=== PATIENT | male | born 1935 | race Caucasian/White ===

== ENCOUNTER 2017-10-14 10:27 | Outpatient (CLI) | payer MEDICARE, OTHER | END 2017-10-14 10:28 | disposition home or self-care (01) | LOC: LAB 10:27 | PROVIDERS: ATTEND Ophthalmology | DX: H02.423 Myogenic ptosis of bilateral eyelids (principal) | CPT/HCPCS: 36415; 81599; 83519; 86255 ==

== ENCOUNTER 2019-08-22 23:07 | Emergency (ER) | payer MEDICARE, OTHER ==
--- NOTE | 2019-08-22 23:25 | ED Physician Documentation ---
History of Present Illness - Stated complaint Stated Complaint: CP - Chief complaint Chief Complaint: Cardiac - History obtained from History obtained from: Patient (Patient is an 84-year-old male who presents with what he is calling heartburn. He does have a history of coronary artery disease with 2 stent placement. He took 2 nitro prior to arrival. He denies any syncope or recent coughs or fevers. Denies any history of pulmonary embolism or DVT.), Other (patient reports he ate spicy enchiladas tonight and had some heartburn, reports his symptoms are gone currently.) Review of Systems Constitutional: reports: Reviewed and negative Eyes: reports: Reviewed and negative Ears: reports: Reviewed and negative Nose: reports: Reviewed and negative Throat: reports: Reviewed and negative Cardiac: reports: Chest pain / pressure Respiratory: reports: Reviewed and negative GI: reports: Reviewed and negative : reports: Reviewed and negative Skin: reports: Reviewed and negative Musculoskeletal: reports: Reviewed and negative Neurologic: reports: Reviewed and negative Psychiatric: reports: Reviewed and negative Endocrine: reports: Reviewed and negative Immunocompromised: reports: Reviewed and negative PD PAST MEDICAL HISTORY - Past Medical History Cardiovascular: Coronary artery disease Respiratory: None Endocrine/Autoimmune: None GI: None : None HEENT: Chronic vision loss Psych: None Musculoskeletal: Osteoarthritis Derm: None - Past Surgical History Past Surgical History: Yes General: Cholecystectomy, Appendectomy Ortho: Spine surgery Cardiovascular: Coronary stent HEENT: Tonsil/Adenoidectomy - Present Medications Home Medications: Ambulatory Orders Medication Instructions Recorded Confirmed Aspirin 81 mg PO 06/13/13 12/06/14 C,E,Zinc,Copper 24/Om3/Lut/Luke 1 each PO 06/13/13 12/06/14 [Ocuvite Softgel] Calcium Carbonate/Vitamin D3 1 each PO BID 06/13/13 12/06/14 [Calcium + Vitamin D Tablet] Metoprolol Succinate [Toprol Xl] 25 mg PO ONCE 06/13/13 12/06/14 Simvastatin [Zocor] 20 mg PO QPM 06/13/13 12/06/14 lamoTRIgine [LaMICtal] 150 mg PO BID 06/13/13 12/06/14 Oxycodone HCl/Acetaminophen 1 12/06/14 12/06/14 [Percocet 5-325 mg Tablet] - Allergies Allergies/Adverse Reactions: Allergies Allergy/AdvReac Type Severity Reaction Status Date / Time varenicline tartrate * Allergy Severe seizures Verified 08/22/19 23:11 [From Chantix] Sulfa (Sulfonamide Allergy Unknown Unknown Verified 08/22/19 23:11 Antibiotics) - Social History Does the pt smoke?: Yes Smoking Status: Current every day smoker Does the pt drink ETOH?: Yes Does the pt have substance abuse?: No PD ED PE NORMAL - Vitals Vital signs reviewed: Yes - General General: Alert and oriented X 3, No acute distress, Well developed/nourished - HEENT HEENT: PERRL - Neck Neck: Supple, no meningeal sign - Cardiac Cardiac: RRR, No murmur, Strong equal pulses - Respiratory Respiratory: No respiratory distress, Clear bilaterally - Abdomen Abdomen: Normal bowel sounds, Soft, Non tender, Non distended, No organomegaly, Other (No midline abdominal pulsatile mass) - Back Back: No CVA TTP, No spinal TTP - Derm Derm: Normal color, Warm and dry, No rash - Extremities Extremities: No deformity, No tenderness to palpate, Normal ROM s pain, No edema, No calf tenderness / cord - Neuro Neuro: Alert and oriented X 3, ribbon tier 2-12 intact, No motor deficit, No sensory deficit, Normal speech - Psych Psych: Normal mood, Normal affect Results - Vitals Vitals: Vital Signs - 24 hr 08/22/19 08/22/19 08/22/19 23:12 23:30 23:35 Temperature 36.6 C Heart Rate 66 59 L Respiratory 16 17 Rate Blood Pressure 145/70 H 140/70 H Blood Pressure 145/70 H [Left] Blood Pressure 140/70 H [Right] O2 Saturation 98 98 08/23/19 08/23/19 00:00 01:45 Temperature 36.6 C Heart Rate 65 59 L Respiratory 18 19 Rate Blood Pressure 139/75 H 122/73 Blood Pressure [Left] Blood Pressure [Right] O2 Saturation 98 98 Oxygen O2 Source [With Activity] Room air O2 Source Room air - EKG (time done) 23:11 Rate: Other (no stemi) - Labs Labs: Laboratory Tests 08/22/19 08/22/19 08/22/19 23:20 23:20 23:20 WBC 10.1 RBC 4.96 Hgb 15.5 Hct 46.9 MCV 94.6 H MCH 31.3 H MCHC 33.0 RDW 13.4 Plt Count 187 MPV 10.2 Neut # (Auto) 6.1 Lymph # (Auto) 3.0 Charles # (Auto) 0.7 Eos # (Auto) 0.1 Baso # (Auto) 0.0 Absolute Nucleated RBC 0.00 Nucleated RBC % 0.0 PT INR APTT Sodium 142 Potassium 4.4 Chloride 106 Carbon Dioxide 27 Anion Gap 9.0 BUN 21 H Creatinine 1.1 Estimated GFR (MDRD) 64 L Glucose 116 H Lactic Acid Calcium 9.5 Total Bilirubin 0.4 AST 17 ALT 17 Alkaline Phosphatase 80 Troponin I High Sens 3.9 B-Natriuretic Peptide Total Protein 7.5 Albumin 4.2 Globulin 3.3 Albumin/Globulin Ratio 1.3 Lipase 31 08/22/19 08/22/19 08/22/19 23:20 23:20 23:20 WBC RBC Hgb Hct MCV MCH MCHC RDW Plt Count MPV Neut # (Auto) Lymph # (Auto) Charles # (Auto) Eos # (Auto) Baso # (Auto) Absolute Nucleated RBC Nucleated RBC % PT 12.3 INR 1.1 APTT 30.6 Sodium Potassium Chloride Carbon Dioxide Anion Gap BUN Creatinine Estimated GFR (MDRD) Glucose Lactic Acid 1.3 Calcium Total Bilirubin AST ALT Alkaline Phosphatase Troponin I High Sens B-Natriuretic Peptide 103 H Total Protein Albumin Globulin Albumin/Globulin Ratio Lipase PD MEDICAL DECISION MAKING - ED course Complexity details: reviewed results, re-evaluated patient, considered differential (ACS, PE, PNA, DISSECTION, ANEURYSM, PNTHX), d/w patient (Patient EKG shows no STEMI, chest x-ray is negative, troponins negative I did recommend additional testing however he wants to be discharged home he has medical decision-making capability and capacity accepts all risk and includes all liability for any adverse outcome such as cardiac arrest.), other (patient wants to leave. He does have medical decision-making capability and capacity accepts all risks to include cardiac arrest.I did recommend additional testing to include possible admission to our hospital or transfer to higher level of care however the patient reports he is asymptomatic.) Departure - Departure Disposition: Home, Self Care Clinical Impression: Chest pain Qualifiers: Chest pain type: unspecified Qualified Code(s): R07.9 - Chest pain, unspecified Condition: Stable Instructions: ED Chest Pain Angina Stable Follow-Up: Kim Beaulieu RP [Primary Care Provider] - 08/23/19 Comments: call your pcp today. Return to the ed with any concerns. Discharge Date/Time: 08/23/19 01:50
[2019-08-22 23:32] LABS: BASOPHILS % (AUTO) 0.3 %; EOSINOPHILS # (AUTO) 0.1 10^3/uL (0.0-0.7); EOSINOPHILS % (AUTO) 1.1 %; HGB - HEMOGLOBIN 15.5 g/dL (14.0-18.0); LYMPHOCYTES % (AUTO) 30.1 %; MEAN CORPUSCULAR HEMOGLOBIN 31.3 pg (27.0-31.0); MEAN CORPUSCULAR VOLUME 94.6 fL (80.0-94.0); MEAN PLATELET VOLUME 10.2 fL (7.4-11.4); MONOCYTES # (AUTO) 0.7 10^3/uL (0.0-1.0); MONOCYTES % (AUTO) 7.1 %; NEUTROPHILS # (AUTO) 6.1 10^3/uL (1.5-6.6); NEUTROPHILS % (AUTO) 60.9 %; PLT - PLATELET COUNT 187 10^3/uL (130-450); RED BLOOD COUNT 4.96 10^6/uL (4.70-6.10); RED CELL DISTRIBUTION WIDTH 13.4 % (12.0-15.0); WHITE BLOOD COUNT 10.1 x10^3/uL (4.8-10.8)
[2019-08-22] MEDS ORDERED: ASPIRIN 325 MG TABLET PO STA (23:37)
[2019-08-22 23:45] LABS: ALBUMIN 4.2 g/dL (3.2-5.5); ALBUMIN/GLOBULIN RATIO 1.3 (1.0-2.2); BILIRUBIN,TOTAL 0.4 mg/dL (0.2-1.0); CALCIUM 9.5 mg/dL (8.5-10.3); CREATININE 1.1 mg/dL (0.6-1.2); TOTAL PROTEIN 7.5 g/dL (6.7-8.2)
[2019-08-22] MEDS ORDERED: NITROGLYCERIN 50 MG/250 ML 50 MG/250 ML BOTTLE IV SCH (23:45)
[2019-08-22 23:57] LABS: INR 1.1 (0.8-1.2); PT - PROTHROMBIN TIME 12.3 secs (9.9-12.6)
[2019-08-23 00:04] LABS: PARTIAL THROMBOPLASTIN TIME 30.6 secs (24.9-33.3)
[2019-08-23 01:46] VITALS: BP 122/73
--- NOTE | 2019-08-23 08:55 | XRAY Report ---
PROCEDURE: Chest 1 View X-Ray INDICATIONS: chest pain TECHNIQUE: One view of the chest was acquired. COMPARISON: Similar chest plain film 12/06/2014 reviewed. FINDINGS: Surgical changes and devices: None. Lungs and pleura: No pleural effusions or pneumothorax. Lungs are mildly abnormal with a chronic in terstitial prominence previously present. Mediastinum: Mediastinal contours appear normal. Heart size is normal. Bones and chest wall: No suspicious bony lesions. Overlying soft tissues appear unremarkable. IMPRESSION: Chronic interstitial prominence stable over time. Source of new chest pain is not identified. Reviewed by: Edilson Thompson MD on 08/23/2019 8:54 AM PDT Approved by: Edilson Thompson MD on 08/23/2019 8:54 AM PDT Station ID: [id number]
== END 2019-08-23 01:50 | disposition home or self-care (01) ==
LOC: ED 23:07
DX: R07.9 Chest pain, unspecified (principal); R00.1 Bradycardia, unspecified; I44.0 Atrioventricular block, first degree; I25.10 Atherosclerotic heart disease of native coronary artery without angina pectoris; Z95.5 Presence of coronary angioplasty implant and graft; F17.200 Nicotine dependence, unspecified, uncomplicated; Z79.82 Long term (current) use of aspirin
CPT/HCPCS: 36415; 71045; 80053; 83605; 83690; 83880; 84484; 85025; 85610; 85730; 93005; 99283; 99284; A9270; 82550; 83735

== ENCOUNTER 2020-06-05 17:58 | Outpatient (CLI) | payer MEDICARE, OTHER | END 2020-06-05 17:59 | disposition critical access hospital (66) | LOC: EMS 17:58 | DX: S01.81XA Laceration without foreign body of other part of head, initial encounter (principal); W18.39XA Other fall on same level, initial encounter; Y93.01 Activity, walking, marching and hiking; Y92.009 Unspecified place in unspecified non-institutional (private) residence as the place of occurrence of the external cause | CPT/HCPCS: A0425; A0429 ==

== ENCOUNTER 2020-06-05 18:04 | Emergency (ER) | payer MEDICARE, OTHER ==
--- NOTE | 2020-06-05 18:12 | ED Physician Documentation ---
PD HPI Fall - Stated complaint Stated Complaint: GLF - History obtained from History obtained from: Patient, EMS - History of Present Illness Mechanism of injury: Lost balance Fall distance: Standing position Where injury occurred: Street Timing - onset: How many hours ago (approximately 30 minutes [employer]) Injury(ies) location: Head Pain level max: 7 Pain level now: 5 Quality of pain: Pain Associated symptoms: No: LOC, AMS, Neck pain, Weakness, Paresthesias, Nausea / vomiting Contributing factors: No: Anticoagulated, Intoxicated Recently seen: Not recently seen - Additional information Additional information: approximately 30 minutes [employer], patient lost his balance while carrying several large jugs of water, causing him to fall to ground. He struck his head on the curb and sustained laceration to scalp. He denies LOC, denies neck pain, denies any other pain besides GOFF. He does not know when his last tetanus booster was. He has mild/moderate generalized headache. Review of Systems Eyes: reports: Reviewed and negative Ears: denies: Drainage/discharge GI: denies: Nausea, Vomiting Skin: reports: Laceration (s) Musculoskeletal: reports: Reviewed and negative Neurologic: reports: Headache, Head injury. denies: Generalized weakness, Focal weakness, Numbness, Near syncope, Syncope, Confused, Altered mental status, LOC PD PAST MEDICAL HISTORY - Past Medical History Cardiovascular: Coronary artery disease Respiratory: None Endocrine/Autoimmune: None GI: None : None HEENT: Chronic vision loss Psych: None Musculoskeletal: Osteoarthritis Derm: None - Past Surgical History Past Surgical History: Yes General: Cholecystectomy, Appendectomy Ortho: Spine surgery Cardiovascular: Coronary stent HEENT: Tonsil/Adenoidectomy - Present Medications Home Medications: Ambulatory Orders Medication Instructions Recorded Confirmed Aspirin 81 mg PO 06/13/13 12/06/14 C,E,Zinc,Copper 24/Om3/Lut/Luke 1 each PO 06/13/13 12/06/14 [Ocuvite Softgel] Calcium Carbonate/Vitamin D3 1 each PO BID 06/13/13 12/06/14 [Calcium + Vitamin D Tablet] Metoprolol Succinate [Toprol Xl] 25 mg PO ONCE 06/13/13 12/06/14 Simvastatin [Zocor] 20 mg PO QPM 06/13/13 12/06/14 lamoTRIgine [LaMICtal] 150 mg PO BID 06/13/13 12/06/14 Oxycodone HCl/Acetaminophen 1 12/06/14 12/06/14 [Percocet 5-325 mg Tablet] Oxycodone HCl/Acetaminophen 1 - 2 each PO Q6H PRN #14 tablet 06/05/20 [Percocet 5-325 mg Tablet] - Allergies Allergies/Adverse Reactions: Allergies Allergy/AdvReac Type Severity Reaction Status Date / Time varenicline tartrate * Allergy Severe seizures Verified 08/22/19 23:11 [From Chantix] Sulfa (Sulfonamide Allergy Unknown Unknown Verified 08/22/19 23:11 Antibiotics) - Social History Does the pt smoke?: Yes Smoking Status: Current every day smoker Does the pt drink ETOH?: Yes Does the pt have substance abuse?: No PD ED PE NORMAL - Vitals Vital signs reviewed: Yes - General General: Alert and oriented X 3, No acute distress, Well developed/nourished - HEENT HEENT: PERRL, EOMI, Moist mucous membranes - Neck Neck: No bony TTP - Extremities Extremities: No deformity, No tenderness to palpate, Normal ROM s pain - Neuro Neuro: Alert and oriented X 3, seed potato cutter 2-12 intact, No motor deficit, No sensory deficit, Normal speech Eye Opening: Spontaneous Motor: Obeys Commands Verbal: Oriented GCS Score: 15 PD ED PE EXPANDED - HEENT HEENT: PERRL, EOMI HEENT Visual: 1 - laceration (8 cm laceration with scant oozing; mild/moderate bony tenderness without obvious bony deformity or step-off) Results - Vitals Vitals: Vital Signs - 24 hr 06/05/20 06/05/20 06/05/20 18:05 18:12 19:39 Temperature 36.9 C Heart Rate 65 88 76 Respiratory 18 22 20 Rate Blood Pressure 164/54 H 160/68 H 155/48 H O2 Saturation 93 95 97 06/05/20 20:50 Temperature Heart Rate 61 Respiratory 14 Rate Blood Pressure 139/63 H O2 Saturation 96 Oxygen O2 Source [] Room air O2 Source Room air - Rads (name of study) CT head Radiology: Prelim report reviewed, See rad report Procedures - Laceration (location) Scalp Length in cm: 8 Wound type: Linear, Into subcut fat, Clean Anesthesia: Lidocaine 1%, With bicarb Wound preparation: Chlorhexadine Skin layer closure: Running, Size #-0 - enter number (4-0) Other: Patient tolerated well, No complications, Neurovascular intact, Dressing applied, Tetanus booster given PD MEDICAL DECISION MAKING - ED course Complexity details: reviewed results, re-evaluated patient, considered different ial, d/w patient Departure - Departure Disposition: Home, Self Care Clinical Impression: Fall, Head injury, Laceration of scalp Condition: Good Instructions: ED Laceration Scalp Stitch Or Stap Follow-Up: DYLON WILDER MD [Primary Care Provider] - (Follow up with your primary care provider in 8-9 days for removal of the stitches) Prescriptions: Oxycodone HCl/Acetaminophen [Percocet 5-325 mg Tablet] 1 - 2 each PO Q6H PRN #14 tablet PRN Reason: pain Discharge Date/Time: 06/05/20 21:00
[2020-06-05] MEDS ORDERED: TETANUS/DIPHTHERIA/PERTUSSIS 0.5 ML SYRINGE IM ONE (18:28)
[2020-06-05] MEDS ORDERED: MORPHINE 2 MG/ML CARPUJECT IVP STA (18:31)
[2020-06-05] MEDS ORDERED: BUFFERED LIDOCAINE 10 ML SYRINGE IU STA (19:07)
--- NOTE | 2020-06-05 19:11 | CT Report ---
PROCEDURE: HEAD WO INDICATIONS: fall, head laceration, GOFF TECHNIQUE: Noncontrast 4.5 mm thick angled axial sections acquired from the foramen magnum to the vertex. For r adiation dose reduction, the following was used: automated exposure control, adjustment of mA and/or kV according to patient size. COMPARISON: None. FINDINGS: Image quality: Excellent. CSF spaces: Basal cisterns are patent. No extra-axial fluid collections. Ventricles are normal in size and shape. Brain: No midline shift. No intracranial masses or hemorrhage. Hernandez-white matter interface is norm al. Skull and face: Calvarium and visualized facial bones are intact, without suspicious lesions. Left frontal scalp laceration. Sinuses: Visualized sinuses and mastoids are clear. IMPRESSION: No acute intracranial abnormality. Left frontal scalp laceration. Reviewed by: Kenn Villanueva MD on 06/05/2020 7:10 PM PDT Approved by: Kenn Villanueva MD on 06/05/2020 7:10 PM PDT Station ID: [id number]
[2020-06-05 20:51] VITALS: BP 139/63
[2020-06-05] MEDS ORDERED: BACITRACIN ZINC OINT 1 PACKET TOP STA (20:56)
== END 2020-06-05 21:00 | disposition home or self-care (01) ==
LOC: EDUNIT# → ED 18:04
DX: S01.01XA Laceration without foreign body of scalp, initial encounter (principal); W18.09XA Striking against other object with subsequent fall, initial encounter; F17.200 Nicotine dependence, unspecified, uncomplicated; Z23 Encounter for immunization
CPT/HCPCS: 12004; 70450; 90471; 90715; 96374; 99284; A9270

== ENCOUNTER 2022-10-14 02:10 | Emergency (ER) | payer MEDICARE, OTHER ==
--- NOTE | 2022-10-14 02:15 | ED Physician Documentation ---
PD HPI CHEST PAIN - Stated complaint Stated Complaint: CHEST/ARM PX - History obtained from History obtained from: Patient - Additional information Additional information: HPI from patient. Patient arrives by private vehicle. Patient complains of midline anterior chest pain rating to the left chest, onset approximately 10:30 PM tonight while he was getting into bed. The pain waxes and wanes although there are are no apparent exacerbating factors, including no pleuritic component, no exertional component. He used his nitroglycerin with improvement, and resolution after three doses of the NTG. At the time of this HPI, he is asymptomatic. He does not recall ever having had similar chest pains. He denies nausea, dyspnea. Past medical history includes myocardial infarction in the 2011 with coronary artery stenting. Review of Systems Cardiac: reports: Chest pain / pressure. denies: Palpitations, Pedal edema, Calf pain Respiratory: reports: Reviewed and negative GI: reports: Reviewed and negative Musculoskeletal: denies: Extremity swelling PD PAST MEDICAL HISTORY - Past Medical History Cardiovascular: Coronary artery disease Respiratory: None Endocrine/Autoimmune: None GI: None : None HEENT: Chronic vision loss Psych: None Musculoskeletal: Osteoarthritis Derm: None - Past Surgical History Past Surgical History: Yes General: Cholecystectomy, Appendectomy Ortho: Spine surgery Cardiovascular: Coronary stent HEENT: Tonsil/Adenoidectomy - Present Medications Home Medications: Ambulatory Orders Medication Instructions Recorded Confirmed Aspirin 81 mg PO 06/13/13 12/06/14 C,E,Zinc,Copper 24/Om3/Lut/Luke 1 each PO 06/13/13 12/06/14 [Ocuvite Softgel] Calcium Carbonate/Vitamin D3 1 each PO BID 06/13/13 12/06/14 [Calcium + Vitamin D Tablet] Metoprolol Succinate [Toprol Xl] 25 mg PO ONCE 06/13/13 12/06/14 Simvastatin [Zocor] 20 mg PO QPM 06/13/13 12/06/14 lamoTRIgine [LaMICtal] 150 mg PO BID 06/13/13 12/06/14 Oxycodone HCl/Acetaminophen 1 12/06/14 12/06/14 [Percocet 5-325 mg Tablet] Oxycodone HCl/Acetaminophen 1 - 2 each PO Q6H PRN #14 tablet 06/05/20 [Percocet 5-325 mg Tablet] - Allergies Allergies/Adverse Reactions: Allergies Allergy/AdvReac Type Severity Reaction Status Date / Time varenicline tartrate * Allergy Severe seizures Verified 08/22/19 23:11 [From Chantix] Sulfa (Sulfonamide Allergy Unknown Unknown Verified 08/22/19 23:11 Antibiotics) - Social History Does the pt smoke?: Yes Smoking Status: Current every day smoker Does the pt drink ETOH?: Yes Does the pt have substance abuse?: No - Immunizations Immunizations are current?: No - POLST Patient has POLST: No PD ED PE NORMAL - Vitals Vital signs reviewed: Yes - General General: Alert and oriented X 3, No acute distress, Well developed/nourished - Neck Neck: No JVD - Cardiac Cardiac: RRR, No murmur, No gallop, No rub, Other (occasional extra beats (correlating with PVCs on residential monitor)) - Respiratory Respiratory: No respiratory distress, Clear bilaterally - Abdomen Abdomen: Soft, Non tender - Derm Derm: Normal color, Warm and dry - Extremities Extremities: No edema - Neuro Neuro: Alert and oriented X 3 Results - Vitals Vitals: Vital Signs - 24 hr 10/14/22 10/14/22 10/14/22 02:23 02:27 03:20 Temperature 36 C L 37 C 37 C Heart Rate 62 60 65 Respiratory 16 17 20 Rate Blood Pressure 155/73 H 155/73 H 107/56 L O2 Saturation 100 96 96 10/14/22 05:34 Temperature 37 C Heart Rate 63 Respiratory 20 Rate Blood Pressure 123/75 O2 Saturation 100 Oxygen O2 Source [] Room air O2 Source Room air - EKG (time done) No standard instances EKG releavant findings:: EKG personally interpreted by author of this note. Relevant findings are: Rate: Rate (enter#) (60) Rhythm: NSR [place]: Normal QRS: Normal Ischemia: Normal ST segments Other comments: Other comments (PVCs) - Labs Labs: Laboratory Tests 10/14/22 10/14/22 10/14/22 02:23 02:23 04:20 WBC 9.8 RBC 5.09 Hgb 15.3 Hct 47.9 MCV 94.1 H MCH 30.1 MCHC 31.9 L RDW 13.1 Plt Count 189 MPV 10.7 Neut # (Auto) 5.8 Lymph # (Auto) 3.2 [place] # (Auto) 0.8 Eos # (Auto) 0.1 Baso # (Auto) 0.0 Absolute Nucleated RBC 0.00 Nucleated RBC % 0.0 Sodium 138 Potassium 4.7 H Chloride 102 Carbon Dioxide 31 Anion Gap 5.0 L BUN 15 Creatinine 1.0 Estimated GFR (MDRD) 71 L Glucose 100 Calcium 10.2 Total Bilirubin 0.4 AST 18 ALT 16 Alkaline Phosphatase 79 Troponin I High Sens 10.0 12.5 Total Protein 6.9 Albumin 4.2 Globulin 2.7 Albumin/Globulin Ratio 1.6 Lipase 22 - Rads (name of study) chest xray Relevant Findings:: Prelim report reviewed, See rad report PD Medical Decision Making - ED course Complexity details: reviewed results, re-evaluated patient, considered differential, d/w patient ED course: Tests ordered and results reviewed by me: EKG, hs-cTn, CBC, ER abdominal panel, single-view chest x-ray (portable). There are no concerning nor diagnostic findings on these tests. A two-hour repeat hs-cTn is without significant increase and remains WNL (10.0 --> 12.5). He remained asymptomatic throughout ED stay including with ambulating to/from BR. Results d/w patient. Return precautions discussed. Advised of mild hyperkalemia (K 4.5), advised to follow up with PMD as well as cardiology for reevaluation. Departure - Departure Disposition: 01 Home, Self Care Clinical Impression: Hyperkalemia Chest pain Qualifiers: Chest pain type: unspecified Qualified Code(s): R07.9 - Chest pain, unspecified Condition: Good Instructions: ED Chest Pain Atypical Unkn Cause, ED Potassium Excess Comments: There were no concerning nor diagnostic findings on tonight's tests. Your potassium level was slightly above the normal range; this is an incidental finding (it is not high enough to cause any symptoms/signs), but it is important to mention to your primary care provider in follow-up. They will likely want to have your potassium level rechecked within the next week or two to make sure that it is normalized. 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 Forms: PCP List Discharge Date/Time: 10/14/22 05:30
[2022-10-14 02:31] LABS: BASOPHILS % (AUTO) 0.3 %; EOSINOPHILS # (AUTO) 0.1 10^3/uL (0.0-0.7); EOSINOPHILS % (AUTO) 0.9 %; HCT - HEMATOCRIT 47.9 % (42.0-52.0); HGB - HEMOGLOBIN 15.3 g/dL (14.0-18.0); LYMPHOCYTES # (AUTO) 3.2 10^3/uL (1.5-3.5); LYMPHOCYTES % (AUTO) 32.1 %; MEAN CORPUSCULAR HEMOGLOBIN 30.1 pg (27.0-31.0); MEAN CORPUSCULAR HGB CONC 31.9 g/dL (32.0-36.0); MEAN CORPUSCULAR VOLUME 94.1 fL (80.0-94.0); MEAN PLATELET VOLUME 10.7 fL (7.4-11.4); MONOCYTES # (AUTO) 0.8 10^3/uL (0.0-1.0); MONOCYTES % (AUTO) 7.7 %; NEUTROPHILS # (AUTO) 5.8 10^3/uL (1.5-6.6); NEUTROPHILS % (AUTO) 58.7 %; PLT - PLATELET COUNT 189 10^3/uL (130-450); RED BLOOD COUNT 5.09 10^6/uL (4.70-6.10); RED CELL DISTRIBUTION WIDTH 13.1 % (12.0-15.0); WHITE BLOOD COUNT 9.8 x10^3/uL (4.8-10.8)
[2022-10-14 02:46] LABS: ALBUMIN 4.2 g/dL (3.2-5.5)
[2022-10-14 02:48] LABS: ALBUMIN/GLOBULIN RATIO 1.6 (1.0-2.2); BILIRUBIN,TOTAL 0.4 mg/dL (0.2-1.0); CALCIUM 10.2 mg/dL (8.5-10.3); POTASSIUM 4.7 mmol/L (3.5-4.5); TOTAL PROTEIN 6.9 g/dL (6.4-8.9)
[2022-10-14 05:38] VITALS: BP 123/75; O2SAT 100
--- NOTE | 2022-10-14 08:14 | XRAY Report ---
PROCEDURE: Chest 1 View X-Ray INDICATIONS: chest pain TECHNIQUE: One view of the chest was acquired. COMPARISON: 08/25/2021 and 08/22/2019. FINDINGS: Surgical changes and devices: None. Lungs and pleura: No pleural effusions or pneumothorax. Chronic emphysematous changes are seen. No d efinite focal infiltrate. Likely calcified granuloma in left lower lung field is again seen and uncha nged from prior study. Mediastinum: Mediastinal contours appear normal. Heart size is enlarged. Bones and chest wall: No suspicious bony lesions. Overlying soft tissues appear unremarkable. IMPRESSION: COPD. No definite focal infiltrate. No pleural effusion or pneumothorax. No discrepancies from pulmonary reading. Reviewed by: Carlos Chamberlain MD on 10/14/2022 8:12 AM PDT Approved by: Carlos Chamberlain MD on 10/14/2022 8:12 AM PDT Station ID: [id number]
== END 2022-10-14 05:30 | disposition home or self-care (01) ==
LOC: ED 02:10
DX: R07.9 Chest pain, unspecified (principal); E87.5 Hyperkalemia; F17.200 Nicotine dependence, unspecified, uncomplicated
CPT/HCPCS: 36415; 80053; 83690; 84484; 85025; 93005; 99283; 99284

== ENCOUNTER 2023-09-24 15:44 | Outpatient (CLI) | payer MEDICARE, OTHER | END 2023-09-24 15:45 | disposition EMS.NT | LOC: EMS 15:44 | DX: Z03.89 Encounter for observation for other suspected diseases and conditions ruled out (principal) ==